=== PATIENT | female | born 1980 | race Caucasian/White ===

== ENCOUNTER → 2018-07-15 10:25 | Outpatient (CLI) | payer MEDICAID ==
[2015-06-22 05:27] VITALS: BMI 41.7
[~2018-07-15 10:25] MED LIST: FERROUS SULFAT325 MG PO; HUMULIN R100 U/ML SC; HUMULIN R100 U/ML SQ; IBUPROFEN600 MG PO; MOTRIN600 MG PO; NOVOLIN N100 U/ML SQ; PERCOCET 10/3251 TA1 PO; PERCOCET 5/3251 TA1 PO; PRENATAL COMPLE1 TAB PO
== END | disposition home or self-care (01) ==
LOC: D.LDO 10:25
DX: O24.419 Gestational diabetes mellitus in pregnancy, unspecified control (principal); Z3A.30 30 weeks gestation of pregnancy

== ENCOUNTER → 2018-07-18 09:20 | Outpatient (CLI) | payer MEDICAID ==
[2015-06-22 05:27] VITALS: BMI 41.7
== END | disposition home or self-care (01) ==
LOC: D.LDO 09:20
DX: O24.913 Unspecified diabetes mellitus in pregnancy, third trimester (principal); Z3A.31 31 weeks gestation of pregnancy

== ENCOUNTER → 2018-07-22 17:10 | Outpatient (CLI) | payer MEDICAID ==
[2015-06-22 05:27] VITALS: BMI 41.7
== END | disposition home or self-care (01) ==
LOC: D.LABREF 17:10
DX: O24.913 Unspecified diabetes mellitus in pregnancy, third trimester (principal); Z3A.31 31 weeks gestation of pregnancy

== ENCOUNTER → 2018-07-25 09:07 | Outpatient (CLI) | payer MEDICAID ==
[2015-06-22 05:27] VITALS: BMI 41.7
== END | disposition home or self-care (01) ==
LOC: D.LDO 09:07
DX: O24.913 Unspecified diabetes mellitus in pregnancy, third trimester (principal); Z3A.32 32 weeks gestation of pregnancy

== ENCOUNTER 2018-07-26 19:33 | Outpatient (CLI) | payer MEDICAID ==
[2015-06-22 05:27] VITALS: BMI 41.7
[2018-07-26 20:35] LABS: APPEARANCE CLEAR (CLEAR); BILIRUBIN NEGATIVE (NEGATIVE); COLOR YELLOW (YELLOW); GLUCOSE NEGATIVE (NEGATIVE); KETONE NEGATIVE (NEGATIVE); NITRITE POSITIVE (NEGATIVE); PROTEIN NEGATIVE (NEGATIVE); UROBILINOGEN NORMAL (NORMAL)
[2018-07-26 20:39] LABS: BACTERIA MODERATE /hpf (NONE SEEN); EPITHELIAL CELLS 0-5 /hpf (0-5); WHITE CELLS - URINE OCC /hpf (0-5)
== END 2018-07-26 20:45 | disposition home or self-care (01) ==
LOC: D.LDO 19:33
PROVIDERS: Obstetrics & Gynecology
DX: O26.893 Other specified pregnancy related conditions, third trimester (principal); Z3A.32 32 weeks gestation of pregnancy

== ENCOUNTER → 2018-07-30 08:23 | Outpatient (CLI) | payer MEDICAID ==
[2015-06-22 05:27] VITALS: BMI 41.7
== END | disposition home or self-care (01) ==
LOC: D.LDO 08:23
DX: O24.913 Unspecified diabetes mellitus in pregnancy, third trimester (principal); Z3A.32 32 weeks gestation of pregnancy

== ENCOUNTER → 2018-08-02 08:46 | Outpatient (CLI) | payer MEDICAID ==
[2015-06-22 05:27] VITALS: BMI 41.7
== END | disposition home or self-care (01) ==
LOC: D.LDO 08:46
DX: O24.913 Unspecified diabetes mellitus in pregnancy, third trimester (principal); Z3A.33 33 weeks gestation of pregnancy

== ENCOUNTER → 2018-08-06 11:31 | Outpatient (CLI) | payer MEDICAID ==
[2015-06-22 05:27] VITALS: BMI 41.7
== END | disposition home or self-care (01) ==
LOC: D.LDO 11:31
DX: O24.419 Gestational diabetes mellitus in pregnancy, unspecified control (principal); Z3A.33 33 weeks gestation of pregnancy

== ENCOUNTER → 2018-08-09 09:15 | Outpatient (CLI) | payer MEDICAID ==
[2015-06-22 05:27] VITALS: BMI 41.7
== END | disposition home or self-care (01) ==
LOC: D.LDO 09:15
DX: O24.913 Unspecified diabetes mellitus in pregnancy, third trimester (principal); Z3A.34 34 weeks gestation of pregnancy

== ENCOUNTER → 2018-08-14 15:05 | Outpatient (CLI) | payer MEDICAID ==
[2015-06-22 05:27] VITALS: BMI 41.7
== END | disposition home or self-care (01) ==
LOC: D.LDO 15:05
DX: O24.419 Gestational diabetes mellitus in pregnancy, unspecified control (principal); Z3A.34 34 weeks gestation of pregnancy

== ENCOUNTER → 2018-08-16 13:20 | Outpatient (CLI) | payer MEDICAID ==
[2015-06-22 05:27] VITALS: BMI 41.7
== END | disposition home or self-care (01) ==
LOC: D.LDO 13:20
DX: O24.419 Gestational diabetes mellitus in pregnancy, unspecified control (principal); Z3A.35 35 weeks gestation of pregnancy

== ENCOUNTER → 2018-08-19 16:01 | Outpatient (CLI) | payer MEDICAID ==
[2015-06-22 05:27] VITALS: BMI 41.7
== END | disposition home or self-care (01) ==
LOC: D.LDO 16:01
DX: O24.419 Gestational diabetes mellitus in pregnancy, unspecified control (principal); Z3A.35 35 weeks gestation of pregnancy

== ENCOUNTER → 2018-08-22 08:45 | Outpatient (CLI) | payer MEDICAID ==
[2015-06-22 05:27] VITALS: BMI 41.7
== END | disposition home or self-care (01) ==
LOC: D.LDO 08:45
DX: O24.419 Gestational diabetes mellitus in pregnancy, unspecified control (principal); Z3A.36 36 weeks gestation of pregnancy

== ENCOUNTER 2018-08-22 10:23 | Outpatient (CLI) | payer MEDICAID ==
[2015-06-22 05:27] VITALS: BMI 41.7
[2018-08-22 16:02] VITALS: BP 96/51
[2018-08-22 19:40] VITALS: BP 111/53
[2018-08-23 06:15] VITALS: BP 110/54
== END 2018-08-23 16:53 | disposition home or self-care (01) ==
LOC: D.LDO 10:23 → D.LD 17:05 → D.LDO 08-23 16:53
DX: O24.419 Gestational diabetes mellitus in pregnancy, unspecified control (principal); Z3A.00 Weeks of gestation of pregnancy not specified

== ENCOUNTER 2018-08-27 08:15 | Outpatient (CLI) | payer MEDICAID ==
[2015-06-22 05:27] VITALS: BMI 41.7
[2018-08-27] MEDS ORDERED: HUMULIN R100 U/ML SC (08:27)
[2018-08-27] MEDS ORDERED: HUMULIN N100 U/ML SC (08:28)
== END 2018-08-27 09:37 ==
LOC: D.LDO 08:15
DX: O26.899 Other specified pregnancy related conditions, unspecified trimester (principal); Z3A.00 Weeks of gestation of pregnancy not specified

== ENCOUNTER → 2018-08-29 15:08 | Outpatient (CLI) | payer MEDICAID ==
[2015-06-22 05:27] VITALS: BMI 41.7
[~2018-08-29 15:08] MED LIST changes: +GUAIFENESI100 MG/5 M PO; +HUMULIN N100 U/ML SC
== END | disposition home or self-care (01) ==
LOC: D.LDO 15:08
DX: O24.419 Gestational diabetes mellitus in pregnancy, unspecified control (principal); Z3A.37 37 weeks gestation of pregnancy

== ENCOUNTER → 2018-09-01 02:10 | Outpatient (CLI) | payer MEDICAID ==
[2015-06-22 05:27] VITALS: BMI 41.7
[~2018-09-01 02:10] MED LIST changes: +HYDROCODON-ACE1 EAC7 PO; +IBUPROFEN800 MG PO
== END | disposition home or self-care (01) ==
LOC: D.LDO 02:10
DX: O26.893 Other specified pregnancy related conditions, third trimester (principal); Z3A.37 37 weeks gestation of pregnancy; R05 Cough

== ENCOUNTER → 2018-09-03 10:40 | Outpatient (CLI) | payer MEDICAID ==
[2015-06-22 05:27] VITALS: BMI 41.7
== END | disposition home or self-care (01) ==
LOC: D.LDO 10:40
DX: O13.3 Gestational [pregnancy-induced] hypertension without significant proteinuria, third trimester (principal); Z3A.37 37 weeks gestation of pregnancy

== ENCOUNTER → 2018-09-06 08:29 | Outpatient (CLI) | payer MEDICAID ==
[2015-06-22 05:27] VITALS: BMI 41.7
== END | disposition home or self-care (01) ==
LOC: D.LDO 08:29
DX: O24.913 Unspecified diabetes mellitus in pregnancy, third trimester (principal); Z3A.38 38 weeks gestation of pregnancy

== ENCOUNTER → 2018-09-09 13:50 | Outpatient (CLI) | payer MEDICAID ==
[2015-06-22 05:27] VITALS: BMI 41.7
== END | disposition home or self-care (01) ==
LOC: D.LDO 13:50
DX: O24.419 Gestational diabetes mellitus in pregnancy, unspecified control (principal); Z3A.38 38 weeks gestation of pregnancy

== ENCOUNTER 2018-09-11 04:51 | Inpatient (IN) | payer MEDICAID ==
[~2018-09-11] VITALS: Ht 176.5 cm; Wt 127.0 kg
[~2018-09-11 04:51] MED LIST changes: -HYDROCODON-ACE1 EAC7 PO; -IBUPROFEN800 MG PO
[2018-09-11 08:11] LABS: HEMATOCRIT 24.1 % (36.0-48.0); MCH 21.9 pg (26.0-34.0); MCHC 30.7 g/dL (31.0-37.0); MCV 71.3 fL (80.0-100.0); RBC 3.38 10x6/uL (4.00-5.40); RDW 14.9 % (11.5-14.5); WBC 6.9 10x3/uL (4.8-10.8)
[2018-09-11 08:29] LABS: HEMOGLOBIN 7.4 g/dL (12-16)
[2018-09-11 09:41] VITALS: BP 110/59; Ht 176.5 cm; Wt 127.0 kg
[2018-09-11 20:33] LABS: HEMATOCRIT 23.9 % (36.0-48.0); MCH 22.6 pg (26.0-34.0); MCHC 30.5 g/dL (31.0-37.0); MEAN PLATELET VOLUME 9.3 fL (7.4-10.4); RBC 3.23 10x6/uL (4.00-5.40); RDW 15.7 % (11.5-14.5); WBC 7.5 10x3/uL (4.8-10.8)
[2018-09-11 20:34] LABS: HEMOGLOBIN 7.3 g/dL (12-16)
[2018-09-11 21:31] LABS: BASOPHILS 0.6 % (0-2); EOSINOPHILS 1.1 % (0-7); HEMATOCRIT 26.8 % (36.0-48.0); HEMOGLOBIN 8.3 g/dL (12-16); IMMATURE GRANULOCYTES 0.3 % (0-5); LYMPHOCYTES 23.1 % (15-50); MCH 22.7 pg (26.0-34.0); MEAN PLATELET VOLUME 9.2 fL (7.4-10.4); MONOCYTES 9.1 % (2-11); NEUTROPHILS 65.8 % (40-80); PLATELET COUNT 250 10x3/uL (130-400); RBC 3.65 10x6/uL (4.00-5.40); RDW 15.7 % (11.5-14.5); WBC 7.1 10x3/uL (4.8-10.8)
[2018-09-11 21:44] LABS: MCV 73.4 fL (80.0-100.0)
[2018-09-12 06:56] LABS: BASOPHILS 0.5 % (0-2); EOSINOPHILS 1.1 % (0-7); HEMATOCRIT 31.7 % (36.0-48.0); HEMOGLOBIN 9.9 g/dL (12-16); IMMATURE GRANULOCYTES 0.3 % (0-5); LYMPHOCYTES 21.2 % (15-50); MCH 23.2 pg (26.0-34.0); MCHC 31.2 g/dL (31.0-37.0); MCV 74.2 fL (80.0-100.0); MEAN PLATELET VOLUME 9.3 fL (7.4-10.4); MONOCYTES 7.7 % (2-11); NEUTROPHILS 69.2 % (40-80); PLATELET COUNT 256 10x3/uL (130-400); RBC 4.27 10x6/uL (4.00-5.40); RDW 16.4 % (11.5-14.5); WBC 7.5 10x3/uL (4.8-10.8)
[2018-09-12 07:29] LABS: RAPID PLASMA REAGIN Non Reactive (Non Reactive)
--- NOTE | 2018-09-12 17:00 | NUR ---
PT STATES SHE IS FINISHED WITH DIET. STATES SHE IS READY TO GO TO NEW ROOM. UP TO VOID. STATES SHE WILL WAIT TI SHOWER WHEN SHE GETS IN NEW ROOM. REQUESTS TO AMBULATE TO ROOM.
--- NOTE | 2018-09-12 17:34 | NUR ---
AMBULATES TO 1257- TOLERATED WELL. INTO SHOWER.
--- NOTE | 2018-09-12 18:56 | NUR ---
BEDSIDE SHIFT REPORT COMPLETED AT THIS TIME
[2018-09-12 19:30] VITALS: BP 120/65
--- NOTE | 2018-09-12 19:30 | NUR ---
SHIFT ASSESSMENT COMPLETED AT THIS TIME, SEE FLOWSHEET
--- NOTE | 2018-09-12 20:13 | NUR ---
PATIENT AT THIS TIME, DENIES PAIN. BED LOCKED IN LOW POSITION, SIDE RAILS UPX2, CALL REY AND TRAY TABLE IN REACH.
--- NOTE | 2018-09-12 21:59 | NUR ---
PATIENT PROVIDED WITH ICE PER REQUEST. DENIES OTHER NEEDS. SIGNIFICANT OTHER AT BEDSIDE HOLDING . BED REMAINS LOCKED IN LOW POSITION, SIDE RAILS UPX2, CALL REY AND TRAY TABLE IN REACH. WILL CONTINUE TO MONITOR.
--- NOTE | 2018-09-12 23:59 | NUR ---
PATIENT SITTING UP ON THE SIDE OF THE BED, DENIES NEEDS. WILL CONTINUE TO MONITOR.
--- NOTE | 2018-09-13 02:21 | NUR ---
PATIENT RESTING WITH EYES CLOSED, RESPIRATIONS EVEN AND NON LABORED, NO DISTRESS NOTED. WILL CONTINUE TO MONITOR.
--- NOTE | 2018-09-13 04:00 | NUR ---
PATIENT RESTING QUIETLY WITH EYES OPEN. ICE WATER PROVIDED PER REQUEST. DENIES OTHER NEEDS. WILL CONTINUE TO MONITOR.
--- NOTE | 2018-09-13 07:45 | NUR ---
AM ASSESSMENT COMPLETED CHARTED ON FLOWSHEET. PT DENIES PAIN OR DISCOMFORT AT THIS TIME. ADDITIONAL PADS AND MESH UNDERWEAR PLACED IN BATHROOM PER PT REQUEST. INFANT IN CRIB AT BEDSIDE. REGULAR DIET BROUGHT IN BY DIETARY, PT STATES UNDERSTANDING TO CALL FOR BLOOD SUGAR CHECK ONE HOUR AFTER SHE FINISHES EATING.
[2018-09-13 07:52] LABS: BASOPHILS 0.5 % (0-2); EOSINOPHILS 1.1 % (0-7); HEMATOCRIT 29.3 % (36.0-48.0); HEMOGLOBIN 8.8 g/dL (12-16); IMMATURE GRANULOCYTES 0.3 % (0-5); LYMPHOCYTES 17.3 % (15-50); MCH 22.5 pg (26.0-34.0); MCV 74.9 fL (80.0-100.0); MEAN PLATELET VOLUME 9.3 fL (7.4-10.4); MONOCYTES 9.3 % (2-11); NEUTROPHILS 71.5 % (40-80); PLATELET COUNT 250 10x3/uL (130-400); RBC 3.91 10x6/uL (4.00-5.40); RDW 16.5 % (11.5-14.5); WBC 9.2 10x3/uL (4.8-10.8)
--- NOTE | 2018-09-13 09:34 | NUR ---
PT CALLS THAT SHE HAS FINISHED EATING. FSBS 134 AT THIS TIME. TO BREAST, PT DENIES PAIN, NO OTHER NEEDS AT THIS TIME.
--- NOTE | 2018-09-13 09:37 | NUR ---
Verito Ellsworth 09/13/18 LE@ 8:10 S: Patient states things are going good with . latched immediately and was sleepier yesterday. Last night and this morning baby appetite has increased. States doesn't want to latch to the left breast only the right. Asked if LC can help? Denies any other questions or concerns. Denies pain with . Thanked CLC for helping with . O: Patient sitting up in bed holding infant. Congratulated on delivery and asked how can I help with . Explained takes time, practice, and patience. Explained breastmilk composition, normal feeding patterns, feeding cues, benefits of skin to skin, positions, how to verify is latched correctly at the breast, and the importance of practicing responsive feeding. Asked if any nipple pain when ? Observed infant feeding cues and showed patient. Explained how to hold infant to place in laid back position. Infant was placed on the left breast in laid back position and latched immediately at 8:42. had round cheeks, mouth 140 degrees, sucking in a rocking motion, and patient and infant appear content with feeding. Observed infant sucking at the breast. came off the breast colostrum could be seen on the side of infant mouth. Infant immediately latch back to the breast. Encouraged to practice responsive feeding to help establish her milk supply. Asked if any questions or concerns? remained latched for feeding as CLC left room. A: Client needs help with latching to the left breast. [facility] appointment was made for patient while in room. P: Continue to promote during hospital visit. [place], RADHA
--- NOTE | 2018-09-13 10:34 | NUR ---
DR TOLBERT ON UNIT, VERBAL REPORT GIVEN OF FSBS, PER MD HOLD INSULIN AT THIS TIME.
--- NOTE | 2018-09-13 11:15 | NUR ---
saline lock removed intact. towels provided for pt to shower, to nursery via crib.
[2018-09-13] MEDS ORDERED: IBUPROFEN800 MG PO (14:28)
[2018-09-13] MEDS ORDERED: HYDROCODON-ACE1 EAC7 PO (14:29)
--- NOTE | 2018-09-13 14:41 | NUR ---
DR TOLBERT PHONED AND QUESTIONED TO WHAT PLAN IS WITH PT'S INSULIN MANAGMENT POST D/C TO HOME TODAY. ORDER RECEIVED TO CHECK BLOOD SUGAR AND NOTIFY HIM OF RESULT.
--- NOTE | 2018-09-13 15:20 | NUR ---
PT'S FSBS NOTED TO BE 137. DR TOLBERT NOTIFIED VIA PHONE, ORDER RECEIVED TO PROCEED WITH DISCHARGE TO HOME, NO INSULIN PRESCRIPTION NEEDED.
--- NOTE | 2018-09-13 15:30 | NUR ---
DR TOLBERT ON UNIT, NOTIFIED OF PT'S BLOOD SUGAR OF 134. ORDER RECEIVED TO HOLD ALL INSULIN AT THIS TIME.
--- NOTE | 2018-09-13 16:45 | NUR ---
PT GIVEN D/C INSTRUCTIONS AND WRITTEN PRESCRIPTIONS FOR PAIN CONTROL POST D/C TO HOME. PT VERBALIZES UNDERSTANDING AND DENIES QUESTIONS, SIGNS CHART COPIES. PT INSTRUCTED TO CALL OUT WHEN SHE HAS INFANT BUCKLED IN CARSEAT AND READY FOR W/C OUT.
--- NOTE | 2018-09-13 16:55 | NUR ---
PT CALLS OUT [employer] LICENSE CLERK LIGHT STATING SHE IS READY TO GO. PT TAKEN OUT VIA W/C TO PRIVATE VEHICLE WITH SIG OTHER TO DRIVE HOME. INFANT BUCKLED IN CARSEAT, INSTRUCTIONS AND PRESCRIPTIONS IN HAND.
== END 2018-09-13 16:55 | disposition home or self-care (01) | DRG 807 ==
LOC: D.LD 04:51
PROVIDERS: ADMIT Obstetrics & Gynecology
PROC: 10907ZC Drainage of Amniotic Fluid, Therapeutic from Products of Conception, Via Natural or Artificial Opening (ICD-10-PCS; principal; 2018-09-12)
PROC: 10E0XZZ Delivery of Products of Conception, External Approach (ICD-10-PCS; 2018-09-12)
DX: O99.02 Anemia complicating childbirth (principal); Z37.0 Single live birth; Z3A.39 39 weeks gestation of pregnancy

== ENCOUNTER 2020-05-15 06:19 | Outpatient (CLI) | payer MEDICAID ==
[~2020-05-15] VITALS: Ht 176.5 cm; Wt 126.8 kg
[~2020-05-15 06:19] MED LIST changes: +HYDROCODON-ACE1 EAC7 PO; +IBUPROFEN800 MG PO
--- NOTE | 2020-05-15 09:40 | NUR ---
PHONE CALL MADE TO DR. TOLBERT, REPORT GIVEN TO MD OF 1 HOUR POST PRANDIAL BS, 162 MG/DL. DR. TOLBERT WANTS TO BE CALLED ON 1 HOUR POST PRANDIAL LUNCH.
--- NOTE | 2020-05-15 20:00 | NUR ---
NST REACTIVE. EFM DC'D. PT TRANSFERRED TO ROOM 1257. CLEAN LENENS PROVIDED. S/O AT BEDSIDE.
--- NOTE | 2020-05-16 07:15 | NUR ---
ISIAH RN AND Fausto STUBBS RN TO BEDSIDE FOR MORNING TEACHING REGARDING INSULIN AND TO WATCH PT. PULL IT UP AND ADMINISTER IT TO SELF AFTER VERIFYTING BY 2 RN'S AT BEDSIDE. VITALS COMPLETED. SEE FLOWSHEET. AM ASSESSMENT COMPLETED. PT. ABLE TO GIVE VERBAL INSTRUCTIONS REGARDING INSULIN AT THIS TIME.
[2020-05-16 08:26] VITALS: BP 101/49; Ht 176.5 cm; Wt 126.8 kg
--- NOTE | 2020-05-16 10:16 | NUR ---
RESULTS OF BS-[address] SINGH. ORDERS TO CONT WITH DISCHARGE.
--- NOTE | 2020-05-16 10:37 | NUR ---
discharge inst verbal and written given. noted that script called into pt pharmacy per dr thomas note. see signed discharge inst sheet for info given. also pfw gestional diabetic given.
--- NOTE | 2020-05-16 10:53 | NUR ---
pt denies any questions. states took insulin with last 2 pregnancies. pt states she is ready to go home and that her ride will be here shortly. requested that she let nurse know when she leaves.
--- NOTE | 2020-05-16 11:35 | NUR ---
PT. DISCHARGED AMBULATORY WITH SIGNIFICANT OTHER.
--- NOTE | 2020-05-16 13:30 | NUR ---
PHONED PT CONCERNING WHETHER INSULIN DOSE FOR EVENING WAS TO BE ORDERED. INSTRUCTED PT TO TOOL CHECKER HER PRESCRIPTION AND IF SHE HAD ANY QUESTIONS CONCERNING DOSAGE ORDERED BY DR TOLBETR TO CALL THIS UNIT BACK AND WE WILL CONTACT DR SINGH FOR FURTHER INSTRUCTIONS. PT STATES UNDERSTANDING.
== END 2020-05-16 11:35 | disposition home or self-care (01) ==
LOC: D.LDO 06:19 → D.LD 20:12 → D.LDO 05-16 11:35
PROVIDERS: ATTEND Obstetrics & Gynecology
DX: O24.419 Gestational diabetes mellitus in pregnancy, unspecified control (principal); Z79.4 Long term (current) use of insulin

== ENCOUNTER 2020-06-02 17:54 | Outpatient (CLI) | payer MEDICAID ==
[2020-05-16 08:26] VITALS: BMI 40.7
== END 2020-06-02 18:40 | disposition home or self-care (01) ==
LOC: D.LDO 17:54
PROVIDERS: ATTEND Obstetrics & Gynecology
DX: O24.419 Gestational diabetes mellitus in pregnancy, unspecified control (principal)

== ENCOUNTER 2020-06-08 17:56 | Outpatient (CLI) | payer MEDICAID ==
[2020-05-16 08:26] VITALS: BMI 40.7
== END 2020-06-08 19:29 | disposition home or self-care (01) ==
LOC: D.LDO 17:56
PROVIDERS: ATTEND Obstetrics & Gynecology
DX: O24.419 Gestational diabetes mellitus in pregnancy, unspecified control (principal)